=== PATIENT | male | born 1975 | race Hispanic/Latino ===

== ENCOUNTER 2024-12-17 17:40 | Emergency (ER) | payer OTHER ==
[~2024-12-17] VITALS: Ht 190.5 cm; Wt 138.3 kg
--- NOTE | 2024-12-17 18:27 | HMCIMG ---
RIGHT FOOT RADIOGRAPHS - 3 VIEWS INDICATION: Pain COMPARISON: None FINDINGS: AP, lateral, and oblique views. No acute fracture or subluxation identified. Chronic-appearing midfoot destructive changes and significant talonavicular subluxation with the hindfoot displaced dorsolaterally to the navicular bone and remainder of the midfoot. Underlying fracture of the talus cannot be excluded. Midfoot alignment is well maintained. No radiopaque foreign body noted. IMPRESSION: Chronic-appearing midfoot destructive changes and significant talonavicular subluxation with the hindfoot displaced dorsolaterally to the navicular bone and remainder of the midfoot. Underlying fracture of the talus cannot be excluded.
--- NOTE | 2024-12-17 18:27 | HMCIMG ---
RIGHT ANKLE RADIOGRAPHS - 3 VIEWS INDICATION: Fracture evaluation COMPARISON: None FINDINGS: AP, lateral, and oblique views. Midfoot destructive changes, including talonavicular subluxation and severe varus deformity of the right ankle. The talar dome is intact. Ankle mortise and tibial plafond are well maintained. No significant joint effusion is present. Mild calcific plaque along the runoff arterial currie and their respective branches. IMPRESSION: Chronic-appearing midfoot destructive changes, perhaps evolving Charcot's joint, but including talonavicular joint subluxation and severe varus deformity of the right ankle.
--- NOTE | 2024-12-17 19:05 | HMCIMG ---
CT RIGHT LOWER EXTREMITY WITHOUT CONTRAST CT RECONSTRUCTIONS INDICATION: Unstable right ankle COMPARISON: None TECHNIQUE: Contiguous axial computed tomography imaging using 3 mm slice thickness was obtained through the right ankle without contrast material. Coronal and sagittal reconstructions were also obtained. 3-D volume renderings included. CT was performed with one or more of the following dose reduction techniques: Automated exposure control, adjustment of the mA and/or kV according to patient size, or use of iterative reconstruction technique. FINDINGS/IMPRESSION: Chronic "Charcot joint-like" destructive changes involving the midfoot, including scattered joint calcifications, including overlying the dorsal lateral midfoot. Intact first through fifth metatarsal bones and their respective phalanges, intact lateral malleolus, and midfoot alignment is well maintained. Slightly displaced comminuted fracture through the medial malleolus inferiorly, talonavicular joint subluxation with the navicular bone located dorsomedial to the talar neck, displaced medial navicular bone fracture, nondisplaced fracture through the medial talar dome, additional miniscule cortical fractures in various locations along the mid foot, and flattening of the ankle arch.
--- NOTE | 2024-12-17 19:48 | ERN ---
General Chief Complaint: Ankle Problem Stated Complaint: RIGHT ANKLE PAIN X 1 MONTH Time Seen by MD: 17:42 Time Seen by Midlevel: 17:42 Source: patient History of Present Illness Initial Comments Patient is a pleasant 49-year-old male presenting to the emergency department for evaluation of right ankle pain and swelling that has been ongoing for one month. Patient reports being seen2 times at [facility] and [place]. Both times he was diagnosed with cellulitis and started on antibiotics. He does report having a previous ultrasound and an x-ray of the right lower extremity performed and was told everything was normal. Patient states he has been unable to ambulate because his right foot is unstable. She hears a cracking/crepitus sound every time he bears weight. Allergies: Coded Allergies: No Known Drug Intolerances (Unverified Allergy, Unknown, 12/17/24) Past Medical History Past Medical History: CAD, Diabetes-Type II, High Cholesterol, Hypertension, Renal Disese, Renal Failure Past Surgical History: Cholecystectomy, Other Surgical History Other: LEFT TOE AMPUTATIONS, ROS Dictation CONSTITUTIONAL: Negative except for HPI HEAD/FACE: Negative except for HPI EENT: Negative except for HPI RESPIRATORY: Negative except for HPI GASTROINTESTINAL/ABDOMINAL: Negative except for HPI GENITOURINARY: Negative except for HPI MUSCULOSKELETAL: Negative except for HPI INTEGUMENTARY: Negative except for HPI NEUROLOGICAL/PSYCH: Negative except for HPI HEMATOLOGIC/LYMPHATIC: Negative except for HPI All Systems Negative, Except as noted above. 13 point review of systems assessed and all negative except for above. Physical Exam Physical Exam Dictation PHYSICAL EXAM: GENERAL: alert,, awake oriented x 3 HEENT: EOMI, Sclera non icteric, moist mucosa NECK: Supple, no JVD, trachea midline LUNGS: Clear breath sounds bilaterally. No wheezes HEART: Regular rate and rhythm. Normal S1 and S2, without murmurs ABD: Abdomen soft, nontender. Bowel sounds present EXT: There is a transmetatarsal amputation to the left foot, right foot/ankle joint is unstable, right foot is everted, there was a crepitus sound when attempting to reduce the right ankle, there is extensive edema NEURO: Alert and oriented to person, follows commands MDM MDM: Patient is a pleasant 49-year-old male presenting to the emergency department for evaluation of right ankle pain and swelling that has been ongoing for one month. Patient reports being seen2 times at [facility] and [place]. Both times he was diagnosed with cellulitis and started on antibiotics. He does report having a previous ultrasound and an x-ray of the right lower extremity performed and was told everything was normal. Patient states he has been unable to ambulate because his right foot is unstable. Patient hears a cracking/crepitus sound every time he bears weight. On physical examination the patient was in no acute distress. There is a transmetatarsal amputation to the left foot, right foot/ankle joint is unstable, right foot is everted, there was a crepitus sound when attempting to reduce the right ankle, there is extensive edema. We obtained a right foot/ankle x-ray which reveals chronic appearing midfoot destructive changes with multiple fractures noted throughout. We reduced the right ankle and placed a stirrup splint. A CT scan of the right lower extremity was obtained which reveals Chronic "Charcot joint- like" destructive changes involving the midfoot, including scattered joint calcifications, including overlying the dorsal lateral midfoot. Intact first through fifth metatarsal bones and their respective phalanges, intact lateral malleolus, and midfoot alignment is well maintained. Slightly displaced comminuted fracture through the medial malleolus inferiorly, talonavicular joint subluxation with the navicular bone located dorsomedial to the talar neck, displaced medial navicular bone fracture, nondisplaced fracture through the medial talar dome, additional miniscule cortical fractures in various locations along the mid foot, and flattening of the ankle arch. licensing specialist Dr. Rossi was consulted. He reviewed x-rays and CT scan report and states these findings are consistent with a Charcot foot the patient will need to follow up with Podiatry outpatient. He states there is no emergent intervention needed at this time. Imaging findings were discussed with both the patient and his . X-ray and CT scan report was printed and provided to the patient. He was given a referral to see mash tub cooker operator outpatient. A stirrup splint was placed and the patient was given crutches. The patient will need to follow up outpatient patient was stable for discharge and all questions were answered. There are no social concerns with this patient. Prescription drug management Prescriptions will include: None Medical management and examination interpretation discussions were had by me with other qualified healthcare professionals as indicated for the patient's care. ED Course Orders Procedure Category Date Status Time Foot Comp 3+Vws Rt RAD 12/17/24 Resulted 17:52 Ankle Comp 3vws Lt RAD 12/17/24 Resulted 18:07 Ct Low Ext W/O CT 12/17/24 Resulted Contrast 18:07 Vital Signs Date Time Temp Pulse Resp B/P (MAP) Pulse Ox O2 Delivery O2 Flow Rate FiO2 12/17/24 17:41 98.8 98 20 127/78 99 0 [facility] [address] [place], [place] [phone] IMAGING REPORT Signed PATIENT: CHANDRIKA THOMAS MR#: [id number] : 1975 SEX: M AGE: 49 LOCATION: EDH ORDER 07 STATUS: REG ER REPORT#: [id number] SERVICE 06 REASON: Unstable right ankle r/o fracture/dislocation ORDERING PHYSICIAN: ERNST KOCH PROCEDURE: LOW EXT WO - CT LOW EXT W/O CONTRAST CT RIGHT LOWER EXTREMITY WITHOUT CONTRAST CT RECONSTRUCTIONS INDICATION: Unstable right ankle COMPARISON: None TECHNIQUE: Contiguous axial computed tomography imaging using 3 mm slice thickness was obtained through the right ankle without contrast material. Coronal and sagittal reconstructions were also obtained. 3-D volume renderings included. CT was performed with one or more of the following dose reduction techniques: Automated exposure control, adjustment of the mA and/or kV according to patient size, or use of iterative reconstruction technique. FINDINGS/IMPRESSION: Chronic "Charcot joint-like" destructive changes involving the midfoot, including scattered joint calcifications, including overlying the dorsal lateral midfoot. Intact first through fifth metatarsal bones and their respective phalanges, intact lateral malleolus, and midfoot alignment is well maintained. Slightly displaced comminuted fracture through the medial malleolus inferiorly, talonavicular joint subluxation with the navicular bone located dorsomedial to the talar neck, displaced medial navicular bone fracture, nondisplaced fracture through the medial talar dome, additional miniscule cortical fractures in various locations along the mid foot, and flattening of the ankle arch. DICTATED BY: JERRI CALZADA MD DATE: 12/17/241849 ELECTRONICALLY SIGNED BY: JERRI CALZADA MD DATE: 12/17/24 190 [facility] [address] [place] [phone] IMAGING REPORT Signed PATIENT: CHANDRIKA THOMAS MR#: [id number] : 1975 SEX: M AGE: 49 LOCATION: ED ORDER 07 STATUS: REG ER [facility] REPORT#: [id number] SERVICE 06 REASON: ankle fracture ORDERING PHYSICIAN: ERNST KOCH PROCEDURE: [id number] - ANKLE COMP 3VWS LT RIGHT ANKLE RADIOGRAPHS - 3 VIEWS INDICATION: Fracture evaluation COMPARISON: None FINDINGS: AP, lateral, and oblique views. Midfoot destructive changes, including talonavicular subluxation and severe varus deformity of the right ankle. The talar dome is intact. Ankle mortise and tibial plafond are well maintained. No significant joint effusion is present. Mild calcific plaque along the runoff arterial currie and their respective branches. IMPRESSION: Chronic-appearing midfoot destructive changes, perhaps evolving Charcot's joint, but including talonavicular joint subluxation and severe varus deformity of the right ankle. DICTATED BY: JERRI CALZADA MD DATE: 12/17/241817 ELECTRONICALLY SIGNED BY: JERRI CALZADA MD DATE: 12/17/24 [address] [place] [id number] [phone] IMAGING REPORT Signed PATIENT: CHANDRIKA THOMAS MR#: [id number] : 1975 SEX: M AGE: 49 LOCATION: ED ORDER 52 STATUS: REG ER REPORT#: [id number] SERVICE 51 REASON: r/o fracture ORDERING PHYSICIAN: ERNST KOCH PROCEDURE: FT 3VW RT - FOOT COMP 3+VWS RT RIGHT FOOT RADIOGRAPHS - 3 VIEWS INDICATION: Pain COMPARISON: None FINDINGS: AP, lateral, and oblique views. No acute fracture or subluxation identified. Chronic-appearing midfoot destructive changes and significant talonavicular subluxation with the hindfoot displaced dorsolaterally to the navicular bone and remainder of the midfoot. Underlying fracture of the talus cannot be excluded. Midfoot alignment is well maintained. No radiopaque foreign body noted. IMPRESSION: Chronic-appearing midfoot destructive changes and significant talonavicular subluxation with the hindfoot displaced dorsolaterally to the navicular bone and remainder of the midfoot. Underlying fracture of the talus cannot be excluded. DICTATED BY: JERRI CALZADA MD DATE: 12/17/241820 ELECTRONICALLY SIGNED BY: JERRI CALZADA MD DATE: 12/17/241826 DX & DISP Disposition: Discharge Departure Impression: Primary Impression: Charcot joint of right foot Additional Impressions: Fractured medial malleolus, Fracture of navicular bone of foot, right, closed, Talar dome fracture Condition: Stable Additional Instructions: Your CT scan shows Charcot joint like destructive changes involving the mid foot with multiple fractures throughout the mid foot. Orthopedic surgeon was consulted in the emergency department and he states this needs to be evaluated by Podiatry. I have given you a follow up with a local mash tub cooker operator Dr. Green. Please make appointment as soon as possible. A stirrup splint was placed which should help stabilize the right foot/ankle. You were given copies of your x-rays and CT scan report. Please show imaging results to mash tub cooker operator specialist. Return to the ER if you develop any new or worsening symptoms Referrals: SELF,REFERRAL (PCP) CLAUDIA GREEN DPM Time of Disposition: 19:41 I have reviewed the case, and I agree with, Diagnosis and Plan I performed the substantive portion of the visit. I have reviewed and personally made and approve the management plan that is documented in the note by myself or the CONST[facility]INO. I acknowledge for responsibility for the patient's management plan. ERNST KOCH Dec 17, 2024 19:48
[2024-12-17 20:33] VITALS: BP 139/84; PULSE 79; RESP 18; TEMP 98.2; O2SAT 98
== END 2024-12-17 20:36 | disposition home or self-care (01) ==
LOC: EDH 17:40
DX: S82.51XA Displaced fracture of medial malleolus of right tibia, initial encounter for closed fracture (principal); S92.251A Displaced fracture of navicular [scaphoid] of right foot, initial encounter for closed fracture; A52.16 Charcot's arthropathy (tabetic); E11.610 Type 2 diabetes mellitus with diabetic neuropathic arthropathy; E78.00 Pure hypercholesterolemia, unspecified; I10 Essential (primary) hypertension; I25.10 Atherosclerotic heart disease of native coronary artery without angina pectoris; Z90.49 Acquired absence of other specified parts of digestive tract; X58.XXXA Exposure to other specified factors, initial encounter; Y93.89 Activity, other specified; Y92.89 Other specified places as the place of occurrence of the external cause; Y99.8 Other external cause status
CPT/HCPCS: 27762; 29515; 73610; 73630; 73700; 99284

== ENCOUNTER → 2025-02-11 | Outpatient (CLI) | payer OTHER ==
[2025-02-11 10:43] LABS: HEMOGLOBIN A1C 6.4 % (4.0-6.0)
--- NOTE | 2025-02-11 10:48 | HMCIMG ---
FOOT COMP 3+VWS LT HISTORY: Left foot ulcer COMPARISON: None TECHNIQUE: 3 images of left foot were obtained. FINDINGS: Transmetatarsal amputation of all tubes are noted. Vascular calcifications are seen. Evaluation for osteomyelitis is limited with radiographs. There is no acute displaced fracture or dislocation. Degenerative changes are seen. IMPRESSION: 1. Findings as described above.
--- NOTE | 2025-02-11 10:49 | HMCIMG ---
CHEST 1VW HISTORY: Order COMPARISON: None FINDINGS: A frontal projection of the chest was obtained. No acute pulmonary infiltrates is seen. The heart is borderline enlarged. Degenerative changes are seen. Prominent interstitial markings are seen. No evidence of aortic calcification is seen. IMPRESSION: 1. No acute pulmonary infiltrate is seen.
--- NOTE | 2025-02-11 11:10 | EKG ---
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
== END | disposition home or self-care (01) ==
LOC: WHH 07:59
PROVIDERS: ATTEND Family Medicine
DX: E11.621 Type 2 diabetes mellitus with foot ulcer (principal); L97.522 Non-pressure chronic ulcer of other part of left foot with fat layer exposed; E11.610 Type 2 diabetes mellitus with diabetic neuropathic arthropathy; E11.51 Type 2 diabetes mellitus with diabetic peripheral angiopathy without gangrene; E11.40 Type 2 diabetes mellitus with diabetic neuropathy, unspecified; I10 Essential (primary) hypertension; E78.5 Hyperlipidemia, unspecified; I25.10 Atherosclerotic heart disease of native coronary artery without angina pectoris; E66.9 Obesity, unspecified; F17.290 Nicotine dependence, other tobacco product, uncomplicated; Z89.432 Acquired absence of left foot; Z68.38 Body mass index [BMI] 38.0-38.9, adult; Z90.49 Acquired absence of other specified parts of digestive tract; Z79.899 Other long term (current) drug therapy
CPT/HCPCS: 71045; 83036; 87070; 87086; 87186; 73630; 93005; G0463; A6021; A4450; A6260

== ENCOUNTER → 2025-04-08 | Outpatient (CLI) | payer OTHER ==
[~2025-04-08] MED LIST: SILVER NITRATE APPLICATOR 1 SWAB TP ONE
== END | disposition home or self-care (01) ==
LOC: WHH 07:59
PROVIDERS: ATTEND Family Medicine
DX: E11.621 Type 2 diabetes mellitus with foot ulcer (principal); L97.522 Non-pressure chronic ulcer of other part of left foot with fat layer exposed; L84 Corns and callosities; E11.610 Type 2 diabetes mellitus with diabetic neuropathic arthropathy; E11.51 Type 2 diabetes mellitus with diabetic peripheral angiopathy without gangrene; E11.40 Type 2 diabetes mellitus with diabetic neuropathy, unspecified; I10 Essential (primary) hypertension; E78.5 Hyperlipidemia, unspecified; I25.10 Atherosclerotic heart disease of native coronary artery without angina pectoris; E66.9 Obesity, unspecified; F17.290 Nicotine dependence, other tobacco product, uncomplicated; Z89.432 Acquired absence of left foot; Z68.38 Body mass index [BMI] 38.0-38.9, adult; Z90.49 Acquired absence of other specified parts of digestive tract; Z79.899 Other long term (current) drug therapy
CPT/HCPCS: 11042; A6212; A6010; A4450

== ENCOUNTER → 2025-04-19 | Outpatient (CLI) | payer OTHER | END | disposition home or self-care (01) | LOC: WHH 08:11 | PROVIDERS: ATTEND Family Medicine | DX: E11.621 Type 2 diabetes mellitus with foot ulcer (principal); L97.522 Non-pressure chronic ulcer of other part of left foot with fat layer exposed; L84 Corns and callosities; E11.610 Type 2 diabetes mellitus with diabetic neuropathic arthropathy; E11.51 Type 2 diabetes mellitus with diabetic peripheral angiopathy without gangrene; E11.40 Type 2 diabetes mellitus with diabetic neuropathy, unspecified; I10 Essential (primary) hypertension; E78.5 Hyperlipidemia, unspecified; I25.10 Atherosclerotic heart disease of native coronary artery without angina pectoris; E66.9 Obesity, unspecified; F17.290 Nicotine dependence, other tobacco product, uncomplicated; Z89.432 Acquired absence of left foot; Z68.38 Body mass index [BMI] 38.0-38.9, adult; Z90.49 Acquired absence of other specified parts of digestive tract; Z79.899 Other long term (current) drug therapy | CPT/HCPCS: G0463; A6010 ==

== ENCOUNTER 2025-06-09 10:17 | Emergency (ER) | payer OTHER ==
[~2025-06-09] VITALS: Ht 190.5 cm; Wt 137.0 kg
[2025-06-09 10:35] VITALS: TEMP 97
--- NOTE | 2025-06-09 10:45 | HMCIMG ---
EXAM: Non-contrast CT examination of the Brain CLINICAL HISTORY: Left-sided weakness. Stroke. TECHNIQUE: Thin collimated axial CT images of the brain were obtained, with sagittal and coronal reformatted images also submitted. CT scan done according to ALARA (As Low as Reasonably Achievable). CONTRAST USED: None. COMPARISON: None provided. FINDINGS: No acute intracranial abnormality is present. No acute cortical infarction, hemorrhage, mass, or mass effect. Mild chronic ischemic changes secondary to small vessel disease. No hydrocephalus or abnormal extra-axial fluid collections. The posterior fossa is unremarkable. The skull base and calvarium are intact. The included portions of the paranasal sinuses and mastoid air cells are clear. IMPRESSION: No acute intracranial abnormality is present. Mild chronic ischemic changes secondary to small vessel disease. /[place]
[2025-06-09 11:21] LABS: IMMATURE GRANULOCYTE ABSOLUTE 0.04 K/uL (0-1); NUCLEATED RED BLOOD CELLS 0.0 % (0.0-0.19); PLATELET COUNT (AUTO) 244 K/uL (130-400); RED BLOOD CELL COUNT(AUTO) 3.49 MIL/uL (4.50-6.20); RED CELL DISTRIBUTION WIDTH 13.2 % (11.0-15.5); WHITE BLOOD COUNT (AUTO) 8.1 K/uL (4.8-10.8)
[2025-06-09 11:40] LABS: CREATININE 2.5 mg/dL (0.5-1.3); GLOMERULAR FILTR. RATE CALC 30.0 mL/min (>90); GLUCOSE,RANDOM 172.0 mg/dL (70-105); INR 1.02 (0.85-1.15); SODIUM SERUM 138.0 mmol/L (136-145); UREA NITROGEN, BLOOD 51.0 mg/dL (7-18)
[2025-06-09 11:45] LABS: CREATINE KINASE, TOTAL 115.0 U/L (21-232); LDL DIRECT 59.0 mg/dL (0-99)
--- NOTE | 2025-06-09 12:00 | EKG ---
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
--- NOTE | 2025-06-09 12:03 | ERN ---
General Chief Complaint: Stroke Symptoms Stated Complaint: STROKE SYMPTOMS Time Seen by MD: 10:22 Source: patient History of Present Illness Initial Comments PATIENT IS A 49-YEAR-OLD GENTLEMAN COMING IN COMPLAINING OF LEFT UPPER EXTREMITY LEFT LOWER EXTREMITY NUMBNESS. PER PATIENT THIS HAPPENED 45 MINUTES PRIOR TO ARRIVAL. ALONG WITH THIS STATES THAT HE WAS HAVING PROBLEMS EXPRESSING HIMSELF VERBALLY. PATIENT DOES HAS A HISTORY OF CAD AND HYPERTENSION Allergies: Coded Allergies: No Known Drug Intolerances (Unverified Allergy, Unknown, 12/17/24) Past Medical History Past Medical History: Diabetes-Type II, High Cholesterol, Hypertension, Renal Disese Past Surgical History: Cholecystectomy Surgical History Other: RT TMA,RT BKA ROS Dictation CONSTITUTIONAL: NO CHILLS, NO FEVER, NO WEAKNESS, NO DIAPHORESIS, NO MALAISE. HEAD/FACE: NO SIGNS OF TRAUMA. EENT: NO EYE PAIN, NO BLURRED VISION, NO TEARING, NO DOUBLE VISION, NO EAR PAIN, NO EAR DISCHARGE, NO NOSE PAIN, NO NASAL CONGESTION, NO THROAT PAIN, NO THROAT SWELLING, NO MOUTH PAIN. RESPIRATORY: NO COUGH, NO ORTHOPNEA, NO SOB, NO STRIDOR, NO WHEEZING. CARDIOVASCULAR: NO CHEST PAIN, NO EDEMA, NO PALPITATIONS, NO SYNCOPE. GASTROINTESTINAL/ABDOMINAL: NO ABDOMINAL PAIN, NO CONSTIPATION, NO DIARRHEA, NO NAUSEA, NO VOMITING. GENITOURINARY: NO ABNORMAL DISCHARGE, NO DYSURIA, NO FREQUENT URINATION, NO HEMATURIA. NO COMPLAINTS OF PAIN IN THE GENITALS. MUSCULOSKELETAL: NO BACK PAIN, NO GOUT, NO JOINT PAIN, NO JOINT SWELLING, NO MUSCLE PAIN, NO MUSCLE STIFFNESS, NO NECK PAIN. INTEGUMENTARY: NO CHANGE IN COLOR, NO CHANGE IN HAIR/NAILS, NO DRYNESS, NO LESION, NO LUMPS, NO RASH. NEUROLOGICAL/PSYCH: NO ANXIETY, NOT DEPRESSED, NO EMOTIONAL PROBLEM, NO HEADACHE, NO NUMBNESS, NO PRE-EXISTING DEFICIT, NO HISTORY OF SEIZURES, NO TREMORS, NO WEAKNESS. HEMATOLOGIC/LYMPHATIC: NOT ANEMIC, NO HISTORY OF BLOOD CLOTS, NO APPARENT BLEEDING, NO BRUISING, GLANDS NOT SWOLLEN. ALL SYSTEMS NEGATIVE, EXCEPT NOTED. Physical Exam Physical Exam Dictation VITAL SIGNS: REVIEWED. GENERAL APPEARANCE: ALERT, ORIENTED X3, NO ACUTE DISTRESS, OBESE. HEAD AND FACE: NON-TRAUMATIC. EYES: PERRL, PINK CONJUNCTIVAS, EYELID NO TRAUMA, ANTERIOR CHAMBER CLEAR. EARS: PINNAS INTACT AND NO SIGNS OF TRAUMA OR ERYTHEMA. EAR CANALS CLEAR AND NO DISCHARGE. TMS NO ERYTHEMA. NOSE: NO DISCHARGE, NO BLEEDING. OROPHARYNX: MOUTH NORMAL, TEETH NO CARIES, TONGUE PINK. PHARYNX CLEAR, NO ERYTHEMA. TONSILS NO EXUDATES, NO ABSCESSES NOTED. MUCOUS MEMBRANE MOIST. NECK: SUPPLE, NON-TENDER, NO THYROMEGALY, NO MASSES, NO JVD, NO BRUITS. BREAST: DEFERRED. CHEST: NO TENDERNESS, NO CREPITUS, NO PARADOXICAL MOVEMENT, NO RETRACTIONS. LUNGS: CLEAR, WELL-VENTILATED, SYMMETRIC, NO RALES, NO WHEEZING, NO RHONCHI, NO STRIDOR, GOOD BREATH SOUNDS BILATERALLY. HEART: REGULAR RATE, REGULAR RHYTHM, NO MURMUR, NO GALLOPS. VASCULAR: NO PERIPHERAL EDEMA. ABDOMEN: SOFT, POSITIVE BOWEL SOUNDS, NONDISTENDED, NO GUARDING, NONTENDER, NO REBOUND, NO MASSES NO HEPATOMEGALY, NO SPLENOMEGALY, NO RITTER'S SIGN, NO HERNIAS. RECTAL: DEFERRED. GENITAL: DEFERRED. NEUROLOGICAL: NORMAL SPEECH, GROSS MOTOR FUNCTION INTACT, GROSS SENSORY FUNCTION INTACT. MUSCULOSKELETAL: NECK NONTENDER, FULL RANGE OF MOTION, BACK NONTENDER, FULL RANGE OF MOTION. EXTREMITIES: NONTENDER, FULL RANGE OF MOTION. SKIN: COLOR PINK, DRY, NO TURGOR, NO RASH, NO LACERATIONS, NO ABRASIONS, NO CONTUSIONS. LYMPHATICS: DEFERRED. NIH STROKE SCALE: NIH STROKE SCALE Response (Comments) Value Level of Consciousness Alert 0 Ask patient month and their age Answers both correct 0 Command to open eyes, make fist and let go Obeys both correct 0 Best gaze (horizontal eye movement) Normal 0 Visual Field Testing No Visual Field Loss 0 Facial Paresis Normal / Symmetrical 0 Motor Function - Left Arm Normal 0 Motor Function - Right Arm Normal 0 Motor Function - Left Leg Normal 0 Motor Function - Right Leg Normal 0 Limb Ataxia No Ataxia 0 Sensory-pin prick to arms, legs, trunk and face Normal 0 Best Language (describe picture, name items and read) No Aphasia 0 Dysarthria (read several words) Normal Articulation 0 Extinction and Inattention Normal 0 Total Results Laboratory and Microbiology Lab and Micro Result Laboratory Tests Test 06/09/25 10:23 06/09/25 11:10 Whole Blood Glucose 177 MG/DL (70-110) H White Blood Count 8.1 K/uL (4.8-10.8) Red Blood Count 3.49 MIL/uL (4.50-6.20) L Hemoglobin 10.2 g/dL (14.0-18.0) L Hematocrit 31.4 % (42-54) L Mean Corpuscular Volume 90.0 fL (79-99) Mean Corpuscular Hemoglobin 29.2 pg (27.0-33.0) Mean Corpuscular Hemoglobin Concent 32.5 g/dL (32.0-36.0) Red Cell Distribution Width 13.2 % (11.0-15.5) Platelet Count 244 K/uL (130-400) Mean Platelet Volume 10.1 fL (7.5-10.5) Immature Granulocyte % (Auto) 0.5 % (0-1) Neutrophils (%) (Auto) 67.0 % (40.0-77.0) Lymphocytes (%) (Auto) 20.9 % (21.0-51.0) L Monocytes (%) (Auto) 7.3 % (3.0-13.0) Eosinophils (%) (Auto) 3.7 % (0.0-8.0) Basophils (%) (Auto) 0.6 % (0.0-5.0) Neutrophils # (Auto) 5.4 K/uL (1.8-7.7) Lymphocytes # (Auto) 1.7 K/uL (1.0-4.8) Monocytes # (Auto) 0.6 K/uL (0.1-1.0) Eosinophils # (Auto) 0.30 K/uL (0.00-0.70) Basophils # (Auto) 0.05 K/uL (0.00-0.20) Absolute Immature Granulocyte (auto 0.04 K/uL (0-1) Nucleated Red Blood Cells 0.0 % (0.0-0.19) Prothrombin Time 10.8 SEC (9.6-11.6) Prothromb Time International Ratio 1.02 (0.85-1.15) Activated Partial Thromboplast Time 27.3 SEC (26.3-35.5) Sodium Level 138 mmol/L (136-145) Potassium Level 3.7 mmol/L (3.5-5.1) Chloride Level 103 mmol/L (101-111) Carbon Dioxide Level 28 mmol/L (21-32) Blood Urea Nitrogen 51 mg/dL (7-18) H Creatinine 2.5 mg/dL (0.5-1.3) H Glomerular Filtration Rate Calc 30 mL/min (>90) Random Glucose 172 mg/dL (70-105) H Total Calcium 8.8 mg/dL (8.5-10.1) Total Creatine Kinase 115 U/L (21-232) Troponin I High Sensitivity 20 ng/L (4-75) LDL Cholesterol 59 mg/dL (0-99) Labs Reviewed?: Yes EKG/XRAY/US/CT/MRI CT Scan Comment IMAGING REPORT Addendum PATIENT: CHANDRIKA THOMAS MR#: [id number] : 1975 SEX: M AGE: 49 LOCATION: [facility] ORDER 1024 STATUS: [facility] REPORT#: [id number] SERVICE 1022 REASON: LEFT SIDE WEAKNESS ORDERING PHYSICIAN: BOUCHRA TEJADA MD PROCEDURE: HEAD WO - CT HEAD/BRAIN W/O CONTRAST ADDENDUM REPORT ADDENDUM: Results were shared by telephone at 11:47 am on 06/09/25 and acknowledged by BOUCHRA Judd /[place] EXAM: Non-contrast CT examination of the Brain CLINICAL HISTORY: Left-sided weakness. Stroke. TECHNIQUE: Thin collimated axial CT images of the brain were obtained, with sagittal and coronal reformatted images also submitted. CT scan done according to ALARA (As Low as Reasonably Achievable). CONTRAST USED: None. COMPARISON: None provided. FINDINGS: No acute intracranial abnormality is present. No acute cortical infarction, hemorrhage, mass, or mass effect. Mild chronic ischemic changes secondary to small vessel disease. No hydrocephalus or abnormal extra-axial fluid collections. The posterior fossa is unremarkable. The skull base and calvarium are intact. The included portions of the paranasal sinuses and mastoid air cells are clear. IMPRESSION: No acute intracranial abnormality is present. Mild chronic ischemic changes secondary to small vessel disease. /[place] DICTATED BY: HAYLEE AJ MD DATE: 06/09/25 1148 ELECTRONICALLY SIGNED BY: DATE: EXAM: Non-contrast CT examination of the Brain CLINICAL HISTORY: Left-sided weakness. Stroke. TECHNIQUE: Thin collimated axial CT images of the brain were obtained, with sagittal and coronal reformatted images also submitted. CT scan done according to ALARA (As Low as Reasonably Achievable). CONTRAST USED: None. COMPARISON: None provided. FINDINGS: No acute intracranial abnormality is present. No acute cortical infarction, hemorrhage, mass, or mass effect. Mild chronic ischemic changes secondary to small vessel disease. No hydrocephalus or abnormal extra-axial fluid collections. The posterior fossa is unremarkable. The skull base and calvarium are intact. The included portions of the paranasal sinuses and mastoid air cells are clear. IMPRESSION: No acute intracranial abnormality is present. Mild chronic ischemic changes secondary to small vessel disease. /[place] DICTATED BY: HAYLEE AJ MD DATE: 06/09/25 1144 ELECTRONICALLY SIGNED BY: HAYLEE AJ MD DATE: 06/09/25 1144 [facility] MDM: DIFFERENTIAL DIAGNOSIS: STROKE, CVA, TIA, RATIONALE: TESTS CONSIDERED AND ORDERED SECONDARY TO SHARED DECISION MAKING INCLUDE: LABS, ECG AND RADIOLOGY PREVIOUS OUTSIDE RECORDS REVIEWED: OLD ER VISITS. RISK OF COMPLICATION AND/OR MORBIDITY OR MORTALITY OF PATIENT MANAGEMENT: NONE MEDICATIONS-PER MEDICATION RECONCILIATION NEED FOR HOSPITALIZATION: PATIENT DOES MEET CRITERIA FOR HOSPITALIZATION. NEED FOR EMERGENCY MAJOR/MINOR SURGERY: NO THERE ARE NO SOCIAL CONCERNS WITH THIS PATIENT. PRESCRIPTION DRUG MANAGEMENT PRESCRIPTIONS WILL INCLUDE SYMPTOMATIC CARE PATIENT'S PRIOR EXTERNAL MEDICAL RECORDS FROM OTHER ER VISITS WERE REVIEWED BY ME INDICATED. PRIOR TESTING AND RESULTS FROM PREVIOUS VISITS WERE REVIEWED. PRIOR TESTS WERE TAKEN INTO ACCOUNT WITH MEDICAL DECISION MAKING AND RESOURCE UTILIZATION, INDEPENDENT HISTORIAN/HISTORIANS WERE USED TO OBTAIN COMPLETE MEDICAL HISTORY. I INDEPENDENTLY INTERPRETED THE TEST THAT WERE PERFORMED, RESULTS WERE REVIEWED BY ME AND CONSIDERED FINDINGS ON RADIOLOGY IF ORDERED. MEDICAL MANAGEMENT AND EXAMINATION INTERPRETATION DISCUSSIONS WERE HAD BY ME WITH OTHER QUALIFIED HEALTHCARE PROFESSIONALS INDICATED FOR THE PATIENT'S CARE. 49-YEAR-OLD MALE COMING IN COMPLAINING OF LEFT UPPER AND LEFT LOWER EXTREMITY WEAKNESS AND NUMBNESS WHICH SUBSIDED PRIOR TO ARRIVAL. PER FAMILY MEMBER AND PATIENT THE SYMPTOMS INITIATED 45 MIN[address]IOR TO ARRIVAL[address] OF THE HEAD DID NOT DISCLOSE ACUTE FINDINGS RENAL FUNCTION CREATININE 2.5. DUE TO THE SYMPTOMS PRESENTING BY PATIENT TELENEUROLOGIST WAS CONSULTED TELENEUROLOGIST RECOMMENDS ADMISSION FOR STROKE WORKUP. [facility] WHO ACCEPTS PATIENT, SPOKE TO HOSPITALIST MONSE HERMOSILLO ACCEPTS PATIENT WELL. ED Course Orders Procedure Category Date Status Time Cbc With Differential LAB 06/09/25 Complete 10:22 Prothrombin Time With LAB 06/09/25 Complete INR 10:22 Partial LAB 06/09/25 Complete Thromboplastin Time 10:22 Ct Head/Brain W/O CT 06/09/25 Resulted Contrast 10:22 Chest 1vw RAD 06/09/25 Logged 10:22 12 Lead Ekg Tracing- EKG 06/09/25 Resulted Technical 10:22 Creatine Kinase, Total LAB 06/09/25 Complete 10:22 Ldl Direct LAB 06/09/25 Complete 10:22 Troponin I High LAB 06/09/25 Complete Sensitivity 10:22 Urinalysis Profile LAB 06/09/25 Logged 10:22 Bedside Glucose CPOE 06/09/25 Transmitted Fingerstick 10:22 Nihss Every Shift And CPOE 06/09/25 Transmitted PRN 10:22 Basic Metabolic Panel LAB 06/09/25 Complete 10:22 Vital Signs Date Time Temp Pulse Resp B/P (MAP) Pulse Ox O2 Delivery O2 Flow Rate FiO2 06/09/25 14:16 80 16 151/71 92 Room Air* 0 21 06/09/25 11:53 87 14 147/78 99 Room Air* 0 21 06/09/25 10:35 97.0 80 18 115/70 97 Room Air 0 06/09/25 10:30 98.1 86 14 154/81 97 Room Air* 0 21 DX & DISP Disposition: Transfer Decision to Admit Time: 15:37 Departure Impression: Primary Impression: TIA (transient ischemic attack) Additional Impression: CVA (cerebral vascular accident) Condition: Stable Referrals: SELF,REFERRAL (PCP) BOUCHRA TEJADA MD Jun 09, 2025 12:03
[2025-06-09 14:16] VITALS: BP 151/71; PULSE 80; RESP 16; O2SAT 92
--- NOTE | 2025-06-09 16:06 | HMCIMG ---
EXAM: CR Chest, 1 View. CLINICAL HISTORY: STROKE COMPARISON: None provided. FINDINGS: LUNGS: There is no mass, infiltrate, or acute pulmonary abnormality. PLEURAL SPACES: No evidence of pleural effusion or pneumothorax. MEDIASTINUM: Mild to moderate cardiomegaly. Pulmonary vasculature and interstitial markings remain within normal limits. BONES: No acute osseous abnormality. IMPRESSION: 1. No acute cardiopulmonary findings. 2. Mild to moderate cardiomegaly. /[place]
--- NOTE | 2025-06-09 16:51 | NUR ---
1643 CALLED REPORT TO [facility]. GAVE REPORT TO CHIO HENDERSON
== END 2025-06-09 18:22 | disposition short-term general hospital (02) ==
LOC: EDH 10:17
DX: I63.9 Cerebral infarction, unspecified (principal); G45.9 Transient cerebral ischemic attack, unspecified; E11.9 Type 2 diabetes mellitus without complications; E78.00 Pure hypercholesterolemia, unspecified; I11.9 Hypertensive heart disease without heart failure; I25.10 Atherosclerotic heart disease of native coronary artery without angina pectoris; Z89.511 Acquired absence of right leg below knee; Z90.49 Acquired absence of other specified parts of digestive tract
CPT/HCPCS: 36415; 70450; 71045; 80048; 82550; 82948; 83721; 84484; 85025; 85610; 85730; 93005; 99285